=== PATIENT | female | born 1995 ===

== ENCOUNTER 2020-01-13 17:17 | Emergency (ER) | payer SELFPAY ==
[2020-01-13 18:14] VITALS: BP 120/78
[2020-01-13] MEDS ORDERED: IBUPROFEN ORAL LIQD 100 MG/5 ML ORAL.LIQD PO ONE (21:59)
[2020-01-13] MEDS ORDERED: HYDROcodone/APAP 7.5-325MG-15ML ORAL LIQD PO PRN (22:00)
[2020-01-13] MEDS ORDERED: ONDANSETRON 4 MG ODT TAB PO ONE (22:01)
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
== END 2020-01-14 00:52 | disposition home or self-care (01) ==
LOC: ED 17:17
DX: S29.012A Strain of muscle and tendon of back wall of thorax, initial encounter (principal); M62.830 Muscle spasm of back; M62.838 Other muscle spasm; J45.909 Unspecified asthma, uncomplicated; Z98.890 Other specified postprocedural states; V89.2XXA Person injured in unspecified motor-vehicle accident, traffic, initial encounter; Y93.89 Activity, other specified; Y92.410 Unspecified street and highway as the place of occurrence of the external cause; Y99.8 Other external cause status
CPT/HCPCS: 36415; 70450; 72125; 72128; 72131; 84703; Q0162